=== PATIENT | female | born 1990 | race African-American/Black ===

== ENCOUNTER 2020-01-10 23:42 | Emergency (ER) | payer BC ==
[2020-01-10] MEDS ORDERED: Sodium Chloride 0.9% 10 ML Syringe FLUSH PRN (23:49)
[2020-01-10] MEDS ORDERED: Sodium Chloride 0.9% 1,000 ML IV STA (23:49)
--- NOTE | 2020-01-11 01:02 | EDM.PDOC ---
ED HPI GENERAL MEDICAL PROBLEM - General Chief Complaint: General Stated Complaint: [facility] Time Seen by Provider: 01/10/20 23:49 Source of Information: Reports: Patient, EMS, Family History Limitations: Reports: Other (patient will not talk) - History of Present Illness INITIAL COMMENTS - FREE TEXT/NARRATIVE: The patient presents by [facility] for not talking. They found her in a guest bedroom on the floor in a blanket. Her was there and he said she has not talked to her all day and did not eat or drink. He is not sure what is wrong. The patient is alert but she refuses to talk. She will answer questions by shaking her head or using hand gestures. She has no headache, fever, chills, cough, chest pain, shortness of breath, abdominal pain, nausea or vomiting. She is 16 weeks with a LNMP of September 17. She has no bleeding or discharge. She has no pelvic pain. Her says she has never done anything like this before. 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 Social & Family History - Tobacco Use Smoking Status *Q: Unknown Ever Smoked ED ROS GENERAL - Review of Systems Review Of Systems: See Below (Answered by shaking her head and using hand gestures) Constitutional: Reports: No Symptoms HEENT: Reports: No Symptoms Respiratory: Reports: No Symptoms Cardiovascular: Reports: No Symptoms Endocrine: Reports: No Symptoms GI/Abdominal: Reports: No Symptoms : Reports: No Symptoms Musculoskeletal: Reports: No Symptoms Neurological: Reports: No Symptoms ED EXAM, GENERAL - Physical Exam Exam: See Below Exam Limited By: No Limitations General Appearance: Alert, No Apparent Distress Ears: Normal External Exam Nose: Normal Inspection Head: Atraumatic, Normocephalic Neck: Normal Inspection Respiratory/Chest: No Respiratory Distress, Lungs Clear, Normal Breath Sounds Cardiovascular: Regular Rate, Rhythm, No Edema, No Murmur GI/Abdominal: Soft, Non-Tender, No Organomegaly, No Mass Extremities: Normal Inspection Neurological: Alert, Oriented, No Motor/Sensory Deficits Course - Vital Signs Last Recorded V/S: Last Vital Signs Temp 97.9 F 01/10/20 23:46 Pulse 90 01/10/20 23:46 Resp 18 01/10/20 23:46 BP 131/77 01/10/20 23:46 Pulse Ox 100 01/10/20 23:46 - Orders/Labs/Meds Orders: Active Orders 24 hr Category Date Time Status Peripheral IV Care [RC] . DIRECTED Care 01/10/20 23:49 Active Sodium Chloride 0.9% [Saline Flush] Med 01/10/20 23:49 Active 10 ml FLUSH ASDIRECTED PRN Peripheral IV Insertion Adult [OM.PC] Stat Oth 01/10/20 23:49 Ordered Medication Orders Sodium Chloride (Saline Flush) 10 ml FLUSH ASDIRECTED PRN PRN Reason: Keep Vein Open Last Admin: 01/11/20 00:07 Dose: 10 ml Labs: Laboratory Tests 01/10/20 01/10/20 01/10/20 Range/Units 23:55 23:55 23:55 WBC 7.10 (3.98-10.04) K/mm3 RBC 4.88 (3.98-5.22) M/mm3 Hgb 12.8 (11.2-15.7) gm/dl Hct 38.5 (34.1-44.9) % MCV 78.9 L (79.4-94.8) fl MCH 26.2 (25.6-32.2) pg MCHC 33.2 (32.2-35.5) g/dl RDW Std Deviation 43.0 (36.4-46.3) fL Plt Count 212 (182-369) K/mm3 MPV 12.0 (9.4-12.3) fl Neut % (Auto) 74.7 H (34.0-71.1) % Lymph % (Auto) 18.9 L (19.3-51.7) % [place] % (Auto) 5.4 (4.7-12.5) % Eos % (Auto) 0.6 L (0.7-5.8) Baso % (Auto) 0.3 (0.1-1.2) % Neut # (Auto) 5.31 (1.56-6.13) K/mm3 Lymph # (Auto) 1.34 (1.18-3.74) K/mm3 [place] # (Auto) 0.38 H (0.24-0.36) K/mm3 Eos # (Auto) 0.04 (0.04-0.36) K/mm3 Baso # (Auto) 0.02 (0.01-0.08) K/mm3 Sodium 135 L (136-145) mEq/L Potassium 3.4 L (3.5-5.1) mEq/L Chloride 102 (98-107) mEq/L Carbon Dioxide 20 L (21-32) mEq/L Anion Gap 16.4 H (5-15) BUN 11 (7-18) mg/dL Creatinine 0.8 (0.55-1.02) mg/dL Est Cr Clr Drug Dosing TNP Estimated GFR (MDRD) > 60 (>60) mL/min BUN/Creatinine Ratio 13.8 L (14-18) Glucose 124 H (74-106) mg/dL Calcium 9.0 (8.5-10.1) mg/dL Magnesium 1.6 L (1.8-2.4) mg/dl Total Bilirubin 0.3 (0.2-1.0) mg/dL AST 12 L (15-37) U/L ALT 21 (14-59) U/L Alkaline Phosphatase 41 L (46-116) U/L Total Protein 7.2 (6.4-8.2) g/dl Albumin 2.9 L (3.4-5.0) g/dl Globulin 4.3 gm/dL Albumin/Globulin Ratio 0.7 L (1-2) HCG, Quant 33117.0 mIU/mL Meds: Medications Generic Name Dose Route Start Last Admin Trade Name Freq PRN Reason Stop Dose Admin Sodium Chloride 10 ml 01/10/20 23:49 01/11/20 00:07 Saline Flush FLUSH 10 ml ASDIRECTED PRN Administration Keep Vein Open Discontinued Medications Generic Name Dose Route Start Last Admin Trade Name Freq PRN Reason Stop Dose Admin Sodium Chloride 1,000 mls @ 1,000 mls/hr 01/10/20 23:49 01/11/20 00:07 Normal Saline IV 01/11/20 00:48 1,000 mls/hr .BOLUS STA Administration - Re-Assessments/Exams Free Text/Narrative Re-Assessment/Exam: 01/11/20 01:03 I ordered an IV NS 1L bolus and labs. heart rate was 158. Her CBC looks good. Her Na was a little low at 135. Her K was low at 3.4. Her anion gap was slightly elevated at 16.4. Her glucose is 124. Her magnesium was a little low at 1.6. 01/11/20 01:15 She is talking now but not explaining why she was doing what she was doing. She said she could talk but did not. She is not feeling depressed or over whelmed with the . She does not seem threatened by her . I feel it is safe to send her home. Departure - Departure Time of Disposition: :20 Disposition: Home, Self-Care 01 Condition: Good Clinical Impression: Qualifiers: Weeks of gestation: 16 weeks Qualified Code(s): Z3A.16 - 16 weeks gestation of - Discharge Information *PRESCRIPTION DRUG MONITORING PROGRAM REVIEWED*: Not Applicable *COPY OF PRESCRIPTION DRUG MONITORING REPORT IN PATIENT NIEVES: Not Applicable Referrals: PCP,None [Primary Care Provider] - Remi Fagan MD [Physician] - 1 Week Forms: ED Department Discharge Additional Instructions: Take a multivitamin. Your magnesium was a little low. Follow up with Dr Fagan this next week. Please return if you are worse. Sepsis Event Note - Evaluation Sepsis Screening Result: No Definite Risk - Focused Exam Vital Signs: Vital Signs Temp Pulse Resp BP Pulse Ox 01/10/20 23:46 97.9 F 90 18 131/77 100 Date Exam was Performed: 01/11/20 Time Exam was Performed: 01:15 - My Orders Last 24 Hours: My Active Orders 01/10/20 23:49 Peripheral IV Care [RC] . DIRECTED Sodium Chloride 0.9% [Saline Flush] 10 ml FLUSH ASDIRECTED PRN Peripheral IV Insertion Adult [OM.PC] Stat - Assessment/Plan Last 24 Hours: My Active Orders 01/10/20 23:49 Peripheral IV Care [RC] . DIRECTED Sodium Chloride 0.9% [Saline Flush] 10 ml FLUSH ASDIRECTED PRN Peripheral IV Insertion Adult [OM.PC] Stat
== END 2020-01-11 01:30 | disposition home or self-care (01) ==
LOC: JD.ED 23:42
DX: O99.89 Other specified diseases and conditions complicating pregnancy, childbirth and the puerperium (principal); R47.9 Unspecified speech disturbances; Z3A.16 16 weeks gestation of pregnancy
CPT/HCPCS: 36415; 80053; 83735; 84702; 85025; 96360; 99284; J7030

== ENCOUNTER 2020-10-20 15:56 | Emergency (ER) | payer BC, OTHER, SELFPAY ==
[2020-10-20] MEDS ORDERED: HYDROmorphone 1 MG/ML Syringe IVPUSH STA (16:19)
[2020-10-20] MEDS ORDERED: Ondansetron 4 MG/2 ML SDV IVPUSH ONE (16:19)
[2020-10-20] MEDS ORDERED: Alum Hydrox/Mag Hydrox/Simeth 30 ML, Lidocaine 2% 15 ML PO ONE ×2 (16:20)
--- NOTE | 2020-10-20 16:25 | EDM.PDOC ---
ED HPI GENERAL MEDICAL PROBLEM - General Chief Complaint: Abdominal Pain Stated Complaint: ABDOMINAL PAIN Time Seen by Provider: 10/20/20 16:07 Source of Information: Reports: Patient, RN Notes Reviewed History Limitations: Reports: Language Barrier (pt speaks canadian, but states she she cannot "speak it well" seems to understand all questions asked and conveys what is happening.) - History of Present Illness INITIAL COMMENTS - FREE TEXT/NARRATIVE: Patient is a 30-year-old female who presents to the ED for her epigastric abdominal pain. She notes this started at around 10 AM. She states that it comes and goes in waves. She notes that she only drank milk this morning and did not have anything else for food. She is feeling nauseous, did have 1 emesis earlier today. She is denying any fevers or chills, cough or shortness of breath, she is not having any diarrhea. She states she had a good bowel movement this morning as well. Patient thinks that there could be some burning type sensations that radiate upwards. She states that she has felt this pain once before, roughly 1 year ago when she was diagnosed with H. pylori. 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 ED EXAM, GI/ABD - Physical Exam Exam: See Below Exam Limited By: No Limitations General Appearance: Alert, WD/WN, No Apparent Distress Eyes: Bilateral: Normal Appearance Respiratory/Chest: No Respiratory Distress, Lungs Clear, Normal Breath Sounds, No Accessory Muscle Use, Chest Non-Tender Cardiovascular: Normal Peripheral Pulses, Regular Rate, Rhythm, No Edema GI/Abdominal Exam: Normal Bowel Sounds, Soft, No Distention, No Mass, Tender (epigastrium mainly; no radiation) Extremities: Normal Inspection, Normal Capillary Refill Neurological: Alert, Oriented, Normal Cognition, No Motor/Sensory Deficits Psychiatric: Normal Affect, Normal Mood Skin Exam: Warm, Dry, Intact, Normal Color, No Rash Course - Vital Signs Last Recorded V/S: Last Vital Signs Temp 97.5 F 10/20/20 16:12 Pulse 73 10/20/20 16:12 Resp 20 10/20/20 16:12 BP 141/95 H 10/20/20 16:12 Pulse Ox 97 10/20/20 16:12 - Orders/Labs/Meds Orders: Active Orders 24 hr Category Date Time Status Sodium Chloride 0.9% [Normal Saline] 1,000 ml Med 10/20/20 16:30 Active IV ASDIRECTED Sodium Chloride 0.9% [Saline Flush] Med 10/20/20 17:30 Active 10 ml FLUSH ASDIRECTED Labs: Laboratory Tests 10/20/20 10/20/20 10/20/20 Range/Units 16:31 16:31 17:40 WBC 5.39 (3.98-10.04) K/mm3 RBC 5.65 H (3.98-5.22) M/mm3 Hgb 13.8 D (11.2-15.7) gm/dl Hct 42.9 (34.1-44.9) % MCV 75.9 L (79.4-94.8) fl MCH 24.4 L (25.6-32.2) pg MCHC 32.2 (32.2-35.5) g/dl RDW Std Deviation 44.3 (36.4-46.3) fL Plt Count 245 D (182-369) K/mm3 MPV 11.4 (9.4-12.3) fl Neutrophils % (Manual) 78 H (40-60) % Band Neutrophils % 0 (0-10) % Lymphocytes % (Manual) 14 L (20-40) % Atypical Lymphs % 0 % Monocytes % (Manual) 7 (2-10) % Eosinophils % (Manual) 0 L (0.7-5.8) % Basophils % (Manual) 1 (0.1-1.2) Platelet Estimate Adequate Plt Morphology Comment See note Anisocytosis 1+ slight Microcytosis 1+ slight RBC Morph Comment Abnormal Sodium 141 (136-145) mEq/L Potassium 3.7 (3.5-5.1) mEq/L Chloride 103 (98-107) mEq/L Carbon Dioxide 25 (21-32) mEq/L Anion Gap 16.7 H (5-15) BUN 25 H (7-18) mg/dL Creatinine 0.8 (0.55-1.02) mg/dL Est Cr Clr Drug Dosing 98.18 mL/min Estimated GFR (MDRD) > 60 (>60) mL/min BUN/Creatinine Ratio 31.3 H (14-18) Glucose 101 (74-106) mg/dL Calcium 8.9 (8.5-10.1) mg/dL Total Bilirubin 0.3 (0.2-1.0) mg/dL AST 17 (15-37) U/L ALT 28 (14-59) U/L Alkaline Phosphatase 79 (46-116) U/L Total Protein 8.5 H (6.4-8.2) g/dl Albumin 3.8 (3.4-5.0) g/dl Globulin 4.7 gm/dL Albumin/Globulin Ratio 0.8 L (1-2) Lipase 105 (73-393) U/L Urine Color Yellow (Yellow) Urine Appearance Slt cloudy H (Clear) Urine pH 7.0 (5.0-8.0) Ur Specific [place] 1.025 (1.005-1.030) Urine Protein Negative (Negative) Urine Glucose (UA) Negative (Negative) Urine Ketones Negative (Negative) Urine Occult Blood 2+ H (Negative) Urine Nitrite Negative (Negative) Urine Bilirubin Negative (Negative) Urine Urobilinogen 0.2 (0.2-1.0) Ur Leukocyte Esterase Negative (Negative) Urine RBC 0-5 (0-5) /hpf Urine WBC 0-5 (0-5) /hpf Ur Epithelial Cells 5-10 H (0-5) /hpf Urine Bacteria Few (FEW) /hpf Urine Mucus Few (FEW) /hpf Urine HCG, Qual (NEGATIVE) 10/20/20 Range/Units 17:40 WBC (3.98-10.04) K/mm3 RBC (3.98-5.22) M/mm3 Hgb (11.2-15.7) gm/dl Hct (34.1-44.9) % MCV (79.4-94.8) fl MCH (25.6-32.2) pg MCHC (32.2-35.5) g/dl RDW Std Deviation (36.4-46.3) fL Plt Count (182-369) K/mm3 MPV (9.4-12.3) fl Neutrophils % (Manual) (40-60) % Band Neutrophils % (0-10) % Lymphocytes % (Manual) (20-40) % Atypical Lymphs % % Monocytes % (Manual) (2-10) % Eosinophils % (Manual) (0.7-5.8) % Basophils % (Manual) (0.1-1.2) Platelet Estimate Plt Morphology Comment Anisocytosis Microcytosis RBC Morph Comment Sodium (136-145) mEq/L Potassium (3.5-5.1) mEq/L Chloride (98-107) mEq/L Carbon Dioxide (21-32) mEq/L Anion Gap (5-15) BUN (7-18) mg/dL Creatinine (0.55-1.02) mg/dL Est Cr Clr Drug Dosing mL/min Estimated GFR (MDRD) (>60) mL/min BUN/Creatinine Ratio (14-18) Glucose (74-106) mg/dL Calcium (8.5-10.1) mg/dL Total Bilirubin (0.2-1.0) mg/dL AST (15-37) U/L ALT (14-59) U/L Alkaline Phosphatase (46-116) U/L Total Protein (6.4-8.2) g/dl Albumin (3.4-5.0) g/dl Globulin gm/dL Albumin/Globulin Ratio (1-2) Lipase (73-393) U/L Urine Color (Yellow) Urine Appearance (Clear) Urine pH (5.0-8.0) Ur Specific [place] (1.005-1.030) Urine Protein (Negative) Urine Glucose (UA) (Negative) Urine Ketones (Negative) Urine Occult Blood (Negative) Urine Nitrite (Negative) Urine Bilirubin (Negative) Urine Urobilinogen (0.2-1.0) Ur Leukocyte Esterase (Negative) Urine RBC (0-5) /hpf Urine WBC (0-5) /hpf Ur Epithelial Cells (0-5) /hpf Urine Bacteria (FEW) /hpf Urine Mucus (FEW) /hpf Urine HCG, Qual Negative (NEGATIVE) - Re-Assessments/Exams Free Text/Narrative Re-Assessment/Exam: 10/20/20 18:14 Patient presents to the ED for her upper abdominal pain, she notes that she has had a history of H. pylori infection last year, and states this feels the same. We did order IV to be placed with some pain meds/nausea meds, will give her GI cocktail, and check some labs. The patient CBC is essentially unremarkable, metabolic panel also essentially unremarkable, the anion gap is mildly elevated at 16.7 which would suggest slight dehydration, IV fluid should help with that. Urine was slightly cloudy, but negative for any obvious source of infection. Patient has been taken for a CT and the official radiology read is still pending at this time. I did also order 40 mg IV Protonix for suspected reflux/ulcer issues. 10/20/20 18:[address] has come back, and there are no acute abnormalities appreciated on the exam. We will discharge patient home with general conservative recommended ideations, get her started on omeprazole, and Maalox and have her follow-up with primary care provider in our clinic for H. pylori testing and/or further management. Patient verbalized understanding. Departure - Departure Time of Disposition: 18:44 Disposition: Home, Self-Care 01 Condition: Good Clinical Impression: Epigastric pain - Discharge Information *PRESCRIPTION DRUG MONITORING PROGRAM REVIEWED*: No *COPY OF PRESCRIPTION DRUG MONITORING REPORT IN PATIENT NIEVES: No Instructions: Gastritis, Adult, [id number] Referrals: Singh Chacon NP [Nurse Practitioner] - 1 Week Forms: ED Department Discharge Additional Instructions: You were evaluated in the ER today for your epigastric discomfort. Laboratory evaluation and CT done at today's visit demonstrate no acute abnormalities. Your pain may likely be due to gastritis or ulcer in nature. Recommend you start taking a medication like omeprazole (Prilosec) [id number] to help suppress the acid in your stomach, and get a medication called Maalox, and take as directed on the back of the bottle for ongoing reflux issues. If you are having trouble finding these medications, please ask a pharmacist to help you locate them in the pharmacy. Highly recommend you follow-up with one of our providers in our clinic for ongoing management. A referral has been sent to Singh Chacon, please call [phone]. Please return to the ED if your symptoms should change or worsen. Sepsis Event Note (ED) - Evaluation Sepsis Screening Result: No Definite Risk - Focused Exam Vital Signs: Vital Signs Temp Pulse Resp BP Pulse Ox 10/20/20 16:12 97.5 F 73 20 141/95 H 97 - My Orders Last 24 Hours: My Active Orders 10/20/20 16:30 Sodium Chloride 0.9% [Normal Saline] 1,000 ml IV ASDIRECTED 10/20/20 17:30 Sodium Chloride 0.9% [Saline Flush] 10 ml FLUSH ASDIRECTED - Assessment/Plan Last 24 Hours: My Active Orders 10/20/20 16:30 Sodium Chloride 0.9% [Normal Saline] 1,000 ml IV ASDIRECTED 10/20/20 17:30 Sodium Chloride 0.9% [Saline Flush] 10 ml FLUSH ASDIRECTED
[2020-10-20] MEDS ORDERED: Pantoprazole 40 MG Vial IVPUSH ONE (16:26)
[2020-10-20] MEDS ORDERED: Sodium Chloride 0.9% 1,000 ML IV SCH (16:30)
[2020-10-20] MEDS ORDERED: Diatrizoate Meglumine/Diatrizoate Sodium 37% 120 ML Bottle PO ONE (17:16)
[2020-10-20] MEDS ORDERED: Iopamidol 612 MG/ML 100 ML Bottle IVPUSH ONE (17:16)
[2020-10-20] MEDS ORDERED: Sodium Chloride 0.9% 10 ML Syringe FLUSH SCH (17:30)
--- NOTE | 2020-10-20 18:34 | CT ---
CT abdomen and pelvis Technique: Multiple axial sections were obtained from below the top of the liver inferiorly through the pubic symphysis. Oral and IV contrast was utilized. Delayed images were obtained to the bladder. Reconstructed coronal and sagittal images were obtained. Comparison: No prior abdominal imaging is available. Findings: Visualized lung bases show nothing acute. Visualized liver shows no focal abnormality. Spleen appears within normal limits. Adrenal glands show no nodule. Pancreas shows no discrete abnormality. Gallbladder contains no calcified gallstones. Kidneys show symmetric contrast enhancement. Right kidney is slightly malrotated and has a renal pelvis pointing anterolaterally which is a normal variant. No ureteral dilatation is seen. Abdominal aorta shows no aneurysm. No retroperitoneal adenopathy or mesenteric abnormalities are seen. Appendix is seen which is normal. No pelvic mass or adenopathy is seen. Delayed images shows contrast within the distal ureters as well as within the bladder. Bone window settings were reviewed which shows no acute osseous finding. Impression: 1. 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 2. Complete liver not included on the exam. 3. Nothing acute is appreciated on CT study of the abdomen and pelvis. Diagnostic code #2
== END 2020-10-20 18:55 | disposition home or self-care (01) ==
LOC: JD.ED 15:56
DX: R10.13 Epigastric pain (principal); R11.2 Nausea with vomiting, unspecified
CPT/HCPCS: 36415; 74177; 80053; 81001; 81025; 83690; 85007; 85027; 96374; 96375; 99284; A9270; C9113; J1170; J2405; J7030; Q9963; Q9967

== ENCOUNTER 2020-11-01 08:23 | Emergency (ER) | payer MEDICAID, OTHER, SELFPAY ==
--- NOTE | 2020-11-01 09:18 | EDM.PDOC ---
ED HPI GENERAL MEDICAL PROBLEM - General Chief Complaint: Respiratory Problem Stated Complaint: SORE THROAT AND COUGH Time Seen by Provider: 11/01/20 08:51 Source of Information: Reports: Patient History Limitations: Reports: No Limitations - History of Present Illness INITIAL COMMENTS - FREE TEXT/NARRATIVE: The patient presents with a sore throat. She woke up this morning with a sore throat about 5am. She says it feels like she is going to lose her voice. She has no fever or chills. She has a slight cough. She has no chest pain or shortness of breath. She has no abdominal pain, nausea or vomiting. She has not been around anyone who is sick like this. Onset: Sudden Duration: Hour(s): (5am) Location: Reports: Other (throat) Quality: Reports: Sharp Severity: Moderate Improves with: Reports: None Worsens with: Reports: None Associated Symptoms: Reports: Cough. 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 Denies: Shortness of Breath Cardiovascular: Reports: No Symptoms Endocrine: Reports: No Symptoms GI/Abdominal: Reports: No Symptoms : Reports: No Symptoms Musculoskeletal: Reports: No Symptoms ED EXAM, GENERAL - Physical Exam Exam: See Below Exam Limited By: No Limitations General Appearance: Alert, No Apparent Distress Ears: Normal External Exam, Normal Canal, Normal TMs Nose: Normal Inspection Throat/Mouth: Other (Mild erythema) Head: Atraumatic, Normocephalic Neck: Normal Inspection, Supple, Non-Tender Respiratory/Chest: No Respiratory Distress, Lungs Clear, Normal Breath Sounds Cardiovascular: Regular Rate, Rhythm, No Edema, No Murmur GI/Abdominal: Soft, Non-Tender, No Organomegaly, No Mass Back Exam: Normal Inspection Extremities: Normal Inspection Neurological: Alert, Oriented, No Motor/Sensory Deficits Course - Vital Signs Last Recorded V/S: Last Vital Signs Temp 97.0 F 11/01/20 08:57 Pulse 75 11/01/20 08:57 Resp 18 11/01/20 08:57 BP 141/83 H 11/01/20 08:57 Pulse Ox 100 11/01/20 08:57 - Orders/Labs/Meds Labs: Laboratory Tests 11/01/20 11/01/20 Range/Units 09:17 09:17 SARS-CoV-2 RNA (YAIR) Negative (NEGATIVE) Group A Strep (PCR) Not detected (NOT DETECT) - Re-Assessments/Exams Free Text/Narrative Re-Assessment/Exam: 11/01/20 09:18 I ordered a rapid strep and COVID 19 test. 11/01/20 10:17 The rapid strep and COVID 19 are negative. I feel she has a viral laryngitis. This requires symptomatic care. I will discharge her home. Departure - Departure Time of Disposition: 10:20 Disposition: Home, Self-Care 01 Condition: Good Clinical Impression: Acute viral laryngitis - Discharge Information *PRESCRIPTION DRUG MONITORING PROGRAM REVIEWED*: Not Applicable *COPY OF PRESCRIPTION DRUG MONITORING REPORT IN PATIENT NIEVES: Not Applicable Referrals: PCP,None [Primary Care Provider] - Singh Chacon OPERATIONS CLERK [Nurse Practitioner] - 1 Week Forms: ED Department Discharge Additional Instructions: Drink plenty of fluids. Take tylenol or motrin for pain. Use chlorseptic lozenges or spray for the pain. Follow up with Singh Chacon if you are not better in a few days. Please return if you are worse. Sepsis Event Note (ED) - Evaluation Sepsis Screening Result: No Definite Risk - Focused Exam Vital Signs: Vital Signs Temp Pulse Resp BP Pulse Ox 11/01/20 08:57 97.0 F 75 18 141/83 H 100
== END 2020-11-01 10:33 | disposition home or self-care (01) ==
LOC: JD.ED 08:23
DX: J04.0 Acute laryngitis (principal); B97.89 Other viral agents as the cause of diseases classified elsewhere; Z20.822 Contact with and (suspected) exposure to COVID-19
CPT/HCPCS: 87651-QW; 99282; 99283; U0002

== ENCOUNTER 2023-08-12 12:49 | Emergency (ER) | payer SELFPAY ==
[2023-08-12] MEDS ORDERED: Ketorolac 60 MG/2 ML SDV IM ONE (13:28)
== END 2023-08-12 14:25 | disposition home or self-care (01) ==
LOC: JD.ED 12:49
DX: S82.832A Other fracture of upper and lower end of left fibula, initial encounter for closed fracture (principal); X50.9XXA Other and unspecified overexertion or strenuous movements or postures, initial encounter
CPT/HCPCS: 29515; 73610; 96372; 99283; J1885; 99282